=== PATIENT | female | born 2000 | race Caucasian/White ===

== ENCOUNTER 2024-04-15 16:01 | Emergency (ER) | payer OTHER ==
[~2024-04-15] VITALS: Ht 165.1 cm; Wt 70.0 kg
[~2024-04-15 16:01] MED LIST: QVAR80 IH
[2024-04-15 16:02] VITALS: O2SAT 98
[2024-04-15] MEDS: HYDROXYZINE 25MG TABLET PO ONE (17:19)
[2024-04-15 17:31] VITALS: BP 127/76; PULSE 94; RESP 16; TEMP 98.6
[2024-04-15] MEDS: ACETAMINOPHEN 325MG TABLET PO ONE (17:31)
== END 2024-04-15 17:54 | disposition home or self-care (01) ==
LOC: ER 16:01
DX: F41.9 Anxiety disorder, unspecified (principal); Z88.0 Allergy status to penicillin
CPT/HCPCS: 99283